=== PATIENT | male | born 1970 | race Caucasian/White ===

== ENCOUNTER 2016-07-09 08:27 | Inpatient (IN) ==
--- NOTE | 2016-07-08 20:38 | Discharge Summary ---
<Mayuri Romo - Last Filed: 07/09/16 09:07> Date of Encounter: 07/09/16 - Discharge Diagnosis (1) Arthritis of knee, right Priority: Primary Status: Acute (2) HTN (hypertension) Priority: Secondary Status: Chronic Qualifiers: Hypertension type: essential hypertension Qualified Code(s): I10 - Essential (primary) hypertension (3) Thyroid disease Priority: Secondary Status: Chronic (4) Tobacco use Priority: Secondary Status: Chronic - Discharge Medications Home Medications: CarBAMazepine [Tegretol] 200 mg PO Q8HR 03/28/16 [History] Levothyroxine [Synthroid] 50 mcg PO 0630 03/28/16 [History] Lisinopril [Zestril] 20 mg PO DAILY 03/28/16 [History] Metoprolol [Lopressor] 50 mg PO BID 03/28/16 [History] Aspirin Enteric Coated [Aspirin EC] 325 mg PO DAILY #21 tablet. 07/08/16 [Rx] OxyCODONE Immed Rel [Roxicodone 5 MG] 5 - 10 mg PO Q6HR PRN #40 tablet 07/08/16 [Rx] Doxepin [Sinequan] 25 mg PO HS 07/09/16 [History] Furosemide [Lasix] 40 mg PO DAILY 07/09/16 [History] Allergies/Adverse Reactions: Allergies Metaxalone [From Skelaxin] Adverse Reaction (Verified 07/09/16 09:07) Chest Pain Primary care physician: Tawny uQiroz - Patient Status Disposition: Home, Self-Care Condition: Good - Discharge Instructions Follow Up With: Manny Donnelly MD [Primary Care Provider] - - Hospital Course Hospital course: Mr. Dean is a 46 year old male - Time Spent with Patient Total time spent providing and/or coordinating discharge services: <Phan Timmons - Last Filed: 07/10/16 06:42> Date of Encounter: 07/10/16 Time of Encounter: 06:42 - Discharge Diagnosis (1) Morbid obesity with BMI of 50.0-59.9, adult Priority: Secondary Status: Chronic (2) Arthritis of knee, right Priority: Primary Status: Acute (3) HTN (hypertension) Priority: Secondary Status: Chronic Qualifiers: Hypertension type: essential hypertension Qualified Code(s): I10 - Essential (primary) hypertension (4) Thyroid disease Priority: Secondary Status: Chronic (5) Tobacco use Priority: Secondary Status: Chronic Primary care physician: Tawny Quiroz - Patient Status Functional capacity at discharge: uses cane/walker Overall status at discharge: patient is progressing back to baseline - Hospital Course Hospital course: Mr. Dean is a 46 year old male The patient had an uneventful postoperative course. They received antibiotics and physical therapy and were discharged in stable condition. There will follow -up in the office in 2 weeks. Aspirin for DVT prophylaxis - Time Spent with Patient Total time spent providing and/or coordinating discharge services:
[2016-07-09] MEDS ORDERED: Albuterol 2.5 MG/3 ML NEBULIZER IH ONE (08:43)
[2016-07-09] MEDS ORDERED: CeFAZolin Pre 3,000 MG/100 ML 3,000 MG/100 ML BAG IVPB ONE (08:43)
[2016-07-09] MEDS ORDERED: Famotidine 20 MG/2 ML VIAL IVP ONE (08:43)
[2016-07-09] MEDS ORDERED: Ringers Solution, Lactated 1,000 ML IVC SCH ×3 (08:45→13:13)
[2016-07-09] MEDS ORDERED: *HR* Midazolam HCl 2 MG/2 ML VIAL ONE ×2 (08:53→10:07)
[2016-07-09] MEDS ORDERED: *HR* FentaNYL (PF) 100 MCG/2 ML VIAL ONE (08:53)
--- NOTE | 2016-07-09 09:18 | History & Physical Report ---
Date of Encounter: 07/09/16 Time of Encounter: 09:17 24 Hour HP Update - Instructions Instructions: If the History and Physical is less than 30 days old and was completed prior to A.M. admission and or procedure and has NOT been updated on calendar day of procedure please complete this update prior to performing procedure. - Update Patient reports changes in Medical Condition: No Changes in assessment/condition: No Changes in Medication: No Preop tests/diagnostics Reviewed: Yes Surgery Remains Indicated: Yes Consent for Planned Operative Procedure(s) Verified: Yes - Pre-Operative Checklist Preoperative Checklist Indicated: No Prophylactic Antibiotic Ordered: Yes Is VTE Prophylaxis Indicated?: Yes
[2016-07-09] MEDS ORDERED: diazePAM 5 MG TABLET PO ONE (09:26)
--- NOTE | 2016-07-09 09:30 | Anesthesia Evaluation PreOp ---
Date of Encounter: 07/09/16 Time of Encounter: 09:25 - Past History Planned Operation: Rt TKA Cardiac History: HTN Pulmonary History: Smoker, BUDDY Dx (Undiagnosed) [employer] History: Other (Transverse Myelitis Cervical level...paresthesia Rt UE) Other Medical History: Thyroid, Other (Morbid Obesity) Alcohol Use: occasionally Drug use: marijuana Medications and Allergies CarBAMazepine [Tegretol] 200 mg PO Q8HR 03/28/16 [History] Levothyroxine [Synthroid] 50 mcg PO 0630 03/28/16 [History] Lisinopril [Zestril] 20 mg PO DAILY 03/28/16 [History] Metoprolol [Lopressor] 50 mg PO BID 03/28/16 [History] Aspirin Enteric Coated [Aspirin EC] 325 mg PO DAILY #21 tablet. 07/08/16 [Rx] OxyCODONE Immed Rel [Roxicodone 5 MG] 5 - 10 mg PO Q6HR PRN #40 tablet 07/08/16 [Rx] Doxepin [Sinequan] 25 mg PO HS 07/09/16 [History] Furosemide [Lasix] 40 mg PO DAILY 07/09/16 [History] Allergies Metaxalone [From Skelaxin] Adverse Reaction (Verified 07/09/16 09:07) Chest Pain - Meds/Allergy Pre-op Review Medications Reviewed: Yes Allergies Reviewed: Yes Beta Blockers on Current Med List: Yes (Took today 0730 am) Anesthesia Results - Labs Laboratory Tests 06/27/16 06/27/16 13:38 13:38 Hgb 13.9 Hct 42.9 Plt Count 284 Sodium 139 Potassium 4.2 BUN 11 Creatinine 0.83 - Imaging EKG: report reviewed (SR) Anesthesia Exam O2 Sat Height 1.73 m Height 1.73 m Height 1.73 m Weight 162.386 kg Weight 162.386 kg Weight 162.386 kg O2 Sat by Pulse Oximetry 100 Vital Signs Resp 18 07/09/16 08:57 Height: 5'8 Weight: 352 lbs NPO (# of Hours): MN - HEENT Pupil (Motor): Pupils equal, EOMI Mallampati: III Teeth: Normal Oral Opening: Less than or equal to 3 - [employer] LOC: Oriented [employer] Motor: Normal RUE, Normal LUE, Normal RLE, Normal LLE, Normal Face [employer] Sensory: Normal: LUE, RLE, LLE, Face, Deficit: RUE (Paresthesia) - Cardiac Rhythm: Regular Murmur: None JVD: No Carotid Bruit: No - Pulmonary Breath Sounds: bilateral Clear Respiratory Effort: Symmetrical Anesthesia Assess/Plan ASA Score: 3 (MO HTN) Modified Cecily Scale for Level of Consciousness: Cooperative, oriented, and tranquil Anesthetic Plan: General, Regional Monitoring Plan: Standard Monitors Recovery Plan: PACU (Discussed GA and RA, agrees to proceed)
[2016-07-09] MEDS ORDERED: *HR* Propofol 200 MG/20 ML VIAL IVP ONE ×2 (09:44→11:14)
[2016-07-09] MEDS ORDERED: Lidocaine -MPF 2% 2 ML VIAL ONE (09:45)
[2016-07-09] MEDS ORDERED: ROPIVACAINE HCL/PF 0.5% 30 ML VIAL ONE (09:59)
[2016-07-09] MEDS ORDERED: Bupivacaine/Clonidine Syringe 1 EACH SYRINGE ONE (10:00)
--- NOTE | 2016-07-09 10:33 | Anesthesia Procedures ---
Date of Encounter: 07/09/16 Time of Encounter: 10:30 Procedures: Anesthesia - Nerve Block Procedure Date: 07/09/16 Time: 10:30 Allergies/Adv Reactions: metaxalone Pre-op Diagnosis: right knee OA Surgical Procedure: right TKA Checklist: Correct Patient Identifier, Correct procedure, History checked Correct side: Right Blood Thinner: No Monitor Applied: EKG, BP, Pulse Oximetry Supplemental Oxygen via Nasal Cannula (L/min): 4 Sedation: Versed (mg): 4 Sedation: Fentanyl (mcg): 100 Indication: Post Op Analgesia Pre-op Neuro Deficits: No Block Type: Femoral (30mL ropiv+tetra), Other (iPACK 20mL bupiv + clonidine) Catheter placed: No Sterile Technique: Yes Ultrasound used: Yes Anatomy identified: Yes Visual spread of Local: Yes Neuro Stimulation: Yes Nerve Stimulator Range: 0.2 - 0.4 mA (fem only) Blood on Needle Aspiration: No Smooth Injection of Local: Yes Pain with Injection of Local: No Prep: Chlorhexadine Needle: 22 x 50 mm Stimuplex Local: 0.25% Bupivicaine w/Clonidine 20 mcg/cc (20mL), Tetracaine, Ropivacaine ( 30mL 0.5%) Volume (cc): 50 Number of Attempts: 1 Complications: None/effective block Vitals: Vital Signs/O2 Sat/Glucose, Most Recent Temp Pulse Resp BP Pulse Ox 98.6 F 69 20 106/54 94 L 07/09/16 09:12 07/09/16 10:22 07/09/16 10:22 07/09/16 10:22 07/09/16 10:22
[2016-07-09] MEDS ORDERED: *HR* Promethazine 25 MG/ML VIAL IVP PRN (10:34)
[2016-07-09] MEDS ORDERED: *HR* HYDROmorphone (PF) 1 MG/ML SYRINGE IVP PRN ×2 (10:34→13:13)
[2016-07-09] MEDS ORDERED: *HR* Labetalol 100 MG/20 ML MDV IVP PRN (10:34)
[2016-07-09] MEDS ORDERED: Ketorolac 30 MG/ML VIAL ONE (11:14)
[2016-07-09] MEDS ORDERED: *HR* Phenylephrine 10 MG/ML VIAL ONE (11:14)
[2016-07-09] MEDS ORDERED: EPHEDrine 50 MG/ML VIAL ONE (11:14)
[2016-07-09] MEDS ORDERED: Dexamethasone 4 MG/ML VIAL ONE (11:14)
[2016-07-09] MEDS ORDERED: Ondansetron 4 MG/2 ML VIAL ONE (11:14)
--- NOTE | 2016-07-09 11:27 | Orthopedic Operative Note ---
Date of procedure: 07/09/16 Pre-op diagnosis: Right knee arthritis Post-op diagnosis: same Procedure: Procedure: Right Total knee replacement Estimated blood loss: 200 cc Hardware: Arthrex Femur: 9 Tibia: 9 PS insert: 13 Patella: 40 Exam Under anesthesia: Loss full extension 10 degrees flexion to 90 degrees no instability Procedural Notes: Patient noted to have grade 4 arthritic changes medial compartment patellofemoral joint. Operative procedure: The patient was brought to the operating room and placed on the operating room table. After general anesthesia was administered the operative knee was examined. Findings were noted in the exam under anesthesia. The operative extremity was prepped and draped in sterile surgical fashion. The patient received IV antibiotics prior to skin incision. A standard midline incision was made centered over the patella. The incision was made through the skin and subcutaneous tissue. A medial parapatellar tendon approach was performed. Care was taken to preserve tissue along the medial aspect of the patella. And to protect the patella tendon. The deep MCL was released off the medial tibia. The infra patella fat pad was excised. Knee was brought into flexion. Patient noted to have grade 4 arthritic changes medial compartment patellofemoral joint. The entry hole was made for the intramedullary femoral guide. The guide was seated in 6 degrees of valgus. Anterior cut was made followed by the distal cut. The ACL the PCL the medial and the lateral menisci were excised. The tibia was subluxed forward. The entry hole was made for the intramedullary tibial guide. Guide was seated to resect 2 mm off the more abnormal side. The knee was brought into flexion the distal femur was sized to a 9. The femoral guide was seated, the anterior cut was made followed by the posterior condylar cut, followed by the chamfer cuts. The finishing guide was seated the box cut was made and the lug holes were drilled. The tibia was sized to a 9, the tibial tray was seated and prepared with the large drill followed by the fin cutter. Trial reduction revealed full extension no varus valgus instability with the appropriate 13 PS Blanca. The patella was everted and cut was made at the level of the insertion of the quadriceps and patella tendon. The patella was sized to a 40 the guide was seated and the lug holes are drilled. Trial reduction revealed excellent patella tracking. All trial components were removed all bony surfaces were irrigated. The tibia was cemented first followed by the femur. The 13 PS Blanca was seated and the knee was brought into full extension. The patella was cemented and held in place with the patellar holding clamp. After the cement had hardened, the knee sat for 2 minutes with a Betadine saline solution. The knee was then irrigated out with 2 L of pulse irrigation. The extensor mechanism was closed with #2 FiberWire suture and #2 PDS suture. The subcutaneous tissue was then irrigated and closed deep with #1 PDS suture superficially with 0 PDS suture and skin was closed with skin himanshu and Dermabond. The patient was then placed in a sterile dressing and a postoperative brace extubated and transferred to recovery room in stable condition. Anesthesia: GLORIA Surgeon: Phan Timmons Daylight Driller: Mayuri Romo Condition: stable Disposition: PACU
[2016-07-09] MEDS ORDERED: *HR* HYDROmorphone (PF) 1 MG/ML SYRINGE ONE (12:07)
--- NOTE | 2016-07-09 12:33 | Anesthesia Evaluation Post Op ---
Date of Encounter: 07/09/16 Time of Encounter: 12:33 - Vital Signs Vital Signs: Vital Signs/O2 Sat, Most Current Temp Pulse Resp BP Pulse Ox 97.0 F L 85 16 120/79 99 07/09/16 12:25 07/09/16 12:25 07/09/16 12:25 07/09/16 12:25 07/09/16 12:25 - Lungs Lungs: Clear Ascult./Percussion - Airway Airway: Non-obstructed - Cardiovascular Regular Rate - Mental Status Mental Status: Alert & Oriented, Answers Appropriately - Pain Pain Scale: 0 Pain Scale used: Numeric (1 - 10) - Nausea Vomiting Nausea Vomiting: Not Present - Hydration Hydration: NPO, Has not voided - Discharge PostOp Status: Transfer Patient to floor
[2016-07-09 12:42] LABS: Hematocrit 41.9 % (37.5-50.1); Hemoglobin 13.8 g/dL (12.9-16.9)
[2016-07-09] MEDS ORDERED: Temazepam 15 MG CAPSULE PO PRN (13:13)
[2016-07-09] MEDS ORDERED: *HR* OxyCODONE Immed Rel 5 MG TABLET PO PRN (13:13)
[2016-07-09] MEDS ORDERED: Naloxone 0.4 MG/ML INJ IVP PRN (13:13)
[2016-07-09] MEDS ORDERED: Sennosides 8.6 MG TABLET PO PRN (13:13)
[2016-07-09] MEDS ORDERED: Acetaminophen 325 MG TABLET PO PRN (13:13)
[2016-07-09] MEDS ORDERED: MOM Conc 10 ML UD.LIQ PO PRN (13:13)
[2016-07-09] MEDS ORDERED: Ondansetron 4 MG/2 ML VIAL IVP PRN (13:13)
[2016-07-09] MEDS: carBAMazepine 200 MG TABLET PO SCH (15:10)
[2016-07-09] MEDS: *HR* OxyCODONE Immed Rel 5 MG TABLET PO PRN ×2 (15:11→19:23)
[2016-07-09] MEDS ORDERED: *HR* Enoxaparin 30 MG/0.3 ML SYRINGE SQ SCH (18:00)
[2016-07-09] MEDS: ceFAZolin 3,000 MG in D5% in Water 100 ML IVPB SCH (18:13)
[2016-07-09] MEDS: *HR* Enoxaparin 30 MG/0.3 ML SYRINGE SQ SCH (18:14)
[2016-07-10] MEDS: carBAMazepine 200 MG TABLET PO SCH (00:13)
[2016-07-10] MEDS: *HR* OxyCODONE Immed Rel 5 MG TABLET PO PRN ×3 (00:13→08:55)
[2016-07-10] MEDS: ceFAZolin 3,000 MG in D5% in Water 100 ML IVPB SCH (02:34)
[2016-07-10] MEDS: *HR* Enoxaparin 30 MG/0.3 ML SYRINGE SQ SCH (04:50)
[2016-07-10 06:08] LABS: Hematocrit 34.9 % (37.5-50.1)
[2016-07-10 06:10] LABS: Hemoglobin 11.6 g/dL (12.9-16.9)
[2016-07-10 06:17] LABS: BUN/Creatinine Ratio 20 (6-26); Blood Urea Nitrogen 19 mg/dL (8-26); Calcium 8.7 mg/dL (8.6-10.8); Carbon Dioxide 25 mEq/L (19-29); Chloride 99 mEq/L (98-109); Glucose 186 mg/dL (70-99); Osmolality,Calculated 281 (280-300); Potassium 4.6 mEq/L (3.5-4.5); Sodium 132 mEq/L (136-145); eGFR For African Americans > 60 (> 60); eGFR For Non-African Americans > 60 (> 60)
--- NOTE | 2016-07-10 06:43 | Orthopedics Progress Note ---
Date of Encounter: 07/10/16 Time of Encounter: 06:43 - Assessment and Plan (1) Morbid obesity with BMI of 50.0-59.9, adult Current Visit: Yes Status: Chronic (2) Arthritis of knee, right Current Visit: Yes Status: Acute (3) HTN (hypertension) Current Visit: Yes Status: Chronic Qualifiers: Hypertension type: essential hypertension Qualified Code(s): I10 - Essential (primary) hypertension (4) Thyroid disease Current Visit: Yes Status: Chronic (5) Tobacco use Current Visit: Yes Status: Chronic Subjective Interval history: Patient was seen this morning doing well without complaints. Afebrile vital signs stable. Operative extremity: Neurovascularly intact Dressing clean dry and intact Calves nontender Assessment and plan: Continue with postoperative care Hematocrit 34 discharged today Objective Vital signs: Vital Signs Temp Pulse Resp BP Pulse Ox 07/10/16 04:00 98.0 F 84 17 111/82 96 07/10/16 00:00 98.2 F 88 17 117/80 96 07/09/16 20:00 98.4 F 89 17 114/76 94 L 07/09/16 17:26 79 16 110/75 99 07/09/16 15:20 97.7 F 79 16 110/75 99 07/09/16 13:48 97.6 F 88 16 102/66 94 L 07/09/16 13:36 97.7 F 79 16 138/78 94 L 07/09/16 12:53 97.7 F 77 16 118/73 98 07/09/16 12:35 97.0 F L 81 16 123/80 97 07/09/16 12:25 97.0 F L 85 16 120/79 99 07/09/16 12:15 82 16 110/55 96 07/09/16 12:05 81 16 98/71 96 07/09/16 11:55 97.8 F 80 16 114/68 100 07/09/16 10:32 69 18 104/56 95 07/09/16 10:22 69 20 106/54 94 L 07/09/16 09:12 98.6 F 67 18 108/63 100 07/09/16 08:57 18 Intake and Output 07/09/16 07/09/16 07/10/16 15:59 23:59 07:59 Intake Total 220 / 220 540 / 540 500 / 500 Output Total 200 / 200 400 / 400 Balance 20 / 20 540 / 540 100 / 100 Intake: IV Fluids 100 / 100 100 / 100 Ancef 3,000 MG In 100 / 100 Dextrose 5% 100 ML @ 200 mls/hr IVPB Q8H JACE Rx#: [id number] Ancef Premix 3,000 MG/100 100 / 100 ML 3,000 mg In 100 ml @ 200 mls/hr IVPB PREOP ONE Rx#:[id number] Oral 120 / 120 440 / 440 500 / 500 Output: Urine 400 / 400 Estimated Blood Loss 200 / 200 Other: Meal Dinner Percent of Meal Consumed 50% # Voids 1 1 Weight 162.386 kg - Labs CBC & BMP: 07/10/16 05:29 07/10/16 05:29 Labs: Abnormal lab results Hgb 11.6 g/dL (12.9-16.9) L D 07/10/16 05:29 Hct 34.9 % (37.5-50.1) L 07/10/16 05:29 Sodium 132 mEq/L (136-145) L 07/10/16 05:29 Potassium 4.6 mEq/L (3.5-4.5) H 07/10/16 05:29 Glucose 186 mg/dL (70-99) H 07/10/16 05:29 - VTE Documentation of Mechanical Device: Venous foot pump, device Consult Discharge Plan - Plan Referrals: Manny Donnelly MD [Primary Care Provider] -
[2016-07-10 07:20] VITALS: BP 111/72
[2016-07-10] MEDS ORDERED: Furosemide 40 MG TABLET PO SCH (09:00)
[2016-07-10] MEDS ORDERED: Lisinopril 20 MG TABLET PO SCH (09:00)
[2016-07-10] MEDS ORDERED: FLU VACC QS2016-17 36MOS UP/PF 0.5 ML SYRINGE IM ONE (09:21)
== END 2016-07-10 11:10 | disposition home or self-care (01) | DRG 470 ==
LOC: SAMDAY 08:27 → 3NENU 12:50
PROVIDERS: ADMIT Orthopaedic Surgery; ATTEND Orthopaedic Surgery